=== PATIENT | female | born 1990 | race Caucasian/White ===

== ENCOUNTER → 2023-01-31 23:00 | Outpatient (CLI) | payer SELFPAY | PROVIDERS: Visit Provider Nurse Practitioner Obstetrics & Gynecology | DX: Z34.93 Encounter for supervision of normal pregnancy, unspecified, third trimester (principal); Z3A.37 37 weeks gestation of pregnancy | CPT/HCPCS: 86403 ==

== ENCOUNTER 2023-02-13 04:18 | Inpatient (IN) | payer SELFPAY ==
[2023-02-13 04:35] VITALS: BMI 28.3
[2023-02-13 05:10] VITALS: BP 133/76; PULSE 89; RESP 20; TEMP 36.8; O2SAT 100; BMI 28.1
[2023-02-13 06:09] LABS: Coronavirus 19, PCR Not Detected (NotDetected); Influenza A, PCR Not Detected (NotDetected); Influenza B, PCR Not Detected (NotDetected)
[2023-02-13 06:14] LABS: Basophils % 0.3 % (0.1-2.0); Eosinophils # 0.2 K/mm3 (0.0-0.4); Hemoglobin 12.4 g/dL (12.2-16.2); Lymphocytes # 1.5 K/mm3 (0.7-4.5); Mean Corpuscular HGB Conc 31.8 g/dL (31.8-35.4); Mean Corpuscular Hemoglobin 27.6 pg (27.0-31.2); Mean Corpuscular Volume 86.7 fl (81-99); Monocytes # 0.3 K/mm3 (0.1-1.0); Monocytes % 6.3 % (1.7-9.3); Neutrophils # 3.5 K/mm3 (1.8-7.8); Neutrophils % 63.4 % (37.0-80.0); Platelet Count 195 K/mm3 (142-424); Red Blood Count 4.49 M/mm3 (4.20-5.40); Red Cell Distribution Width 15.2 % (11.5-17.5); White Blood Count 5.4 K/mm3 (4.8-10.8)
--- NOTE | 2023-02-13 12:23 | EXP.LABOR.NO ---
Labor Note Subjective: Date: 02/13/23 Time: 09:15 regular contraction Objective: NST:: Reactive Contractions:: every 2-3 minutes Cervical Dilation:: 4 Effacement:: 50% Station: -2 Membranes: artificially ruptured Fetus: Monitoring?: Yes monitoring type:: External Assessment: Labor progressing?: Yes Cephalopelvic disproportion?: No Plan: Anesthesia for epidural?: No Continue to labor down?: Yes Plan for ?: No Continue to monitor?: Yes Start pushing?: No Comment:: I ruptured membranes and there was clear fluid. The nonstress test is reactive. She is danuta every 2 minutes. We expect a vaginal delivery at
--- NOTE | 2023-02-13 12:24 | EXP.DN ---
Delivery Note Delivery Date:: 02/13/23 Delivery Time:: 11:45 Anesthesia Type: None Was labor medically induced?: Yes Induction method: per pitocin protocol Gestational age (weeks): 39 Infant delivered prior to 39 weeks?: No Gender: Female at 1 minute: 9 at 5 minutes: 9 Delivery Procedure:: She is a 32-year-old 7 para 6 at 39+ weeks gestational age. She has had previous vaginal deliveries. She wanted to deliver in hospital so we elected to induce her labor at term. She was started on IV oxytocin had her membranes ruptured. Under labor epidural she progressed to full dilation and delivered spontaneously a liveborn female child at 11:45 AM on the morning of February 13, 2023. On delivery the head the anterior shoulder then easily delivered followed by the rest the infant's body atraumatically. The baby was vigorous so we allowed the cord to continue to pulsate for approximately 1 minute. The cord was then doubly clamped and cut and the infant was placed on the mother's abdomen for further care. The nurse assigned Apgars of 9 at 1 minute and 9 at 5 minutes. She received IV oxytocin using gentle traction on the cord and countertraction the fundus I was able to easily deliver the placenta intact. There were no perineal or vaginal lacerations. She has a positive blood and was group B streptococcus positive. She received IV antibiotics in labor. She plans to breast-feed. Her estimated blood loss was approximately 200 cc. Placental Delivery Description: Spontaneous
--- NOTE | 2023-02-13 12:27 | EXP.HP ---
History of Present Illness *Admission Date: 02/13/23 *Reason for visit:: Term , previous vaginal deliveries, requested hospital delivery. *History of present illness: She is a 32-year-old 7 para 6 [employer] lady who expressed a desire to deliver in hospital. She wanted to be induced at term as well. As result that she was brought in for induction of labor at 39+ weeks. [facility] Disclaimer: The information contained in this section may have been updated after the patient was seen, as this information can be updated by other users. Surgical History Hx of appendectomy Family History No significant family history Social History Smoking Status: Never smoker alcohol intake: never substance use type: denies use current occupational status: other Travel in the last 8 weeks: None Review of Systems Review of Systems Review of systems:: pertinent systems reviewed and negative unless documented below Meds Home Medications and Allergies Home Medications Medication Instructions Recorded Confirmed Type No Known Home Medications 02/13/23 02/13/23 History New Prescriptions to Start Prescriptions: Allergies Allergy/AdvReac Type Severity Reaction Status Date / Time No Known Allergies Allergy Verified 01/31/23 15:16 Exam Data for Last 24 hours Vital signs and Labs for Last 24 Hours: Temp Pulse Resp BP Pulse Ox 98.2 F 89 20 133/76 100 02/13/23 05:10 02/13/23 05:10 02/13/23 05:10 02/13/23 05:10 02/13/23 05:10 Laboratory Results - last 24 hr 02/13/23 04:45: WBC 5.4, RBC 4.49, Hgb 12.4, Hct 39.0, MCV 86.7, MCH 27.6, MCHC 31.8, RDW 15.2, Plt Count 195, MPV 9.0, Neut % (Auto) 63.4, Lymph % (Auto) 27.0, [place] % (Auto) 6.3, Eos % (Auto) 3.0, Baso % (Auto) 0.3, Neut # (Auto) 3.5, Lymph # (Auto) 1.5, [place] # (Auto) 0.3, Eos # (Auto) 0.2, Baso # (Auto) 0.0 02/13/23 04:45: SARS-CoV-2 (PCR) Not detected, Influenza A Untype (PCR) Not detected, Influenza Type B (PCR) Not detected 02/13/23 04:45: Blood Type A Positive, Antibody Screen Negative, Crossmatch (AHG) See Detail 02/13/23 09:02: Blood Type Confirm A Positive I & O for Last 24 hours: Intake & Output 02/11/23 02/12/23 02/13/23 02/14/23 11:59 11:59 11:59 11:59 Weight 164 lb 15.692 oz Constitutional Constitutional: no acute distress *Routine HEENT Exam Head: Present normocephalic Eye: Present EOMI and PERRL ENT: Present mucous membranes moist *Routine Neck Exam Neck: Present supple; Absent lymphadenopathy *Routine Respiratory Exam Respiratory: Present CTA bilaterally *Routine Cardiovascular Exam Cardiovascular: Present RRR *Routine Abdominal Exam Abdominal: Present soft and normoactive bowel sounds; Absent tenderness *Routine Rectal Exam Rectal:: deferred *Routine Genitalia Exam Genitalia:: deferred *Routine Extremities Exam Extremities: Absent cyanosis, clubbing or edema *Routine Skin Exam Skin: Present warm; Absent rash *Routine Neurological Exam Neurological: Present alert and oriented X3 Assessment and Plan *Assessment and plan (1) Normal delivery: Status: Acute Category: Medical Code(s): O80 - Encounter for full-term uncomplicated delivery (2) Grand multiparity with problem: Status: Acute Category: Medical Code(s): O09.40 - Supervision of with grand multiparity, unspecified trimester Plan We expect a vaginal delivery.
[2023-02-13 13:01] LABS: Microscopic, Urine URINE MICROSCOPIC (MICROSCOPIC)
[2023-02-13 13:05] LABS: Appearance,Urine CLEAR (Clear); Bilirubin,Urine Negative (Negative); Blood, Urine Negative (Negative); Color,Urine YELLOW (Yellow); Glucose,Urine (UA) Negative (Negative); Ketones,Urine Negative (Negative); Leukocyte Esterase,Urine TRACE (Negative); Nitrate,Urine Negative (Negative); Protein,Urine Negative (Negative); Urobilinogen,Urine 0.2 EU/dl (0.2)
[2023-02-13 14:02] LABS: Amphetamine/Metha Screen,Urine Negative ng/ml (<1000); Barbiturates Screen,Urine Negative ng/ml (<200)
[2023-02-13 14:03] LABS: Benzodiazepines Screen,Urine Negative ng/ml (<200)
[2023-02-13 14:04] LABS: Cannabinoid Screen,Urine Negative ng/ml (<50); Cocaine Screen,Urine Negative ng/ml (<300)
[2023-02-13 14:05] LABS: Methadone Screen,Urine Negative ng/ml (<300); Opiate Screen,Urine Negative ng/ml (<300)
[2023-02-13 14:09] LABS: Phencyclidine Screen,Urine Negative ng/ml (<25)
[2023-02-13 14:55] LABS: Bacteria,Urine Trace /lpf; Squamous Epithelial Cell,Urine Occasional #/hpf (0-5)
--- NOTE | 2023-02-13 17:00 | EXP.DC.SUM ---
General Admission date:: 02/13/23 Discharge date: 02/13/23 HPI HPI HPI: She is a 32-year-old 7 para 6 D[place] lady who expressed a desire to deliver in hospital. She wanted to be induced at term as well. As result that she was brought in for induction of labor at 39+ weeks. Hospital Course Hospital Course Hospital Course: She was started on IV oxytocin had her membranes ruptured. She progressed to full dilation and delivered spontaneously a liveborn female child at 11:42 AM on the morning of February 13, 2023. The baby weighed 9 pounds 4 ounces and had Apgars of 9 at 1 minute and 9 at 5 minutes. She has done well and has remained afebrile throughout her hospitalization. We did give her 1 dose of Methergine. We are also giving her oral Cytotec. I will have her take oral Cytotec when she goes home. She will take 200 mcg every 6 hours for the next 24 hours. She has a positive blood, she is rubella unknown and was group B streptococcus positive. She did receive IV antibiotics in labor. She is discharged home. She will continue with her vitamins and iron. She will take the Cytotec for 24 hours. Her condition on discharge is stable and improved. Exam Data for Last 24 hours Vital signs and Labs for Last 24 Hours: Temp Pulse Resp BP Pulse Ox 98.2 F 89 20 133/76 100 02/13/23 05:10 02/13/23 05:10 02/13/23 05:10 02/13/23 05:10 02/13/23 05:10 Laboratory Results - last 24 hr 02/13/23 04:45: WBC 5.4, RBC 4.49, Hgb 12.4, Hct 39.0, MCV 86.7, MCH 27.6, MCHC 31.8, RDW 15.2, Plt Count 195, MPV 9.0, Neut % (Auto) 63.4, Lymph % (Auto) 27.0, [place] % (Auto) 6.3, Eos % (Auto) 3.0, Baso % (Auto) 0.3, Neut # (Auto) 3.5, Lymph # (Auto) 1.5, [place] # (Auto) 0.3, Eos # (Auto) 0.2, Baso # (Auto) 0.0 02/13/23 04:45: SARS-CoV-2 (PCR) Not detected, Influenza A Untype (PCR) Not detected, Influenza Type B (PCR) Not detected 02/13/23 04:45: Blood Type A Positive, Antibody Screen Negative, Crossmatch (AHG) See Detail 02/13/23 08:15: Urine Color Yellow, Urine Appearance Clear, Urine pH 6.0, Ur Specific Tok 1.010, Urine Protein Negative, Urine Glucose (UA) Negative, Urine Ketones Negative, Urine Blood Negative, Urine Nitrate Negative, Urine Bilirubin Negative, Urine Urobilinogen 0.2, Ur Leukocyte Esterase Trace, Urine RBC None, Urine WBC 3-5, Ur Squamous Epith Cells Occasional, Urine Bacteria Trace 02/13/23 08:15: Urine Opiates Screen Negative, Urine Methadone Screen Negative, Ur Barbituates Screen Negative, Ur Phencyclidine Scrn Negative, Ur Amphetamines Screen Negative, U Benzodiazepines Scrn Negative, Urine Cocaine Screen Negative, U Marijuana (THC) Screen Negative 02/13/23 09:02: Blood Type Confirm A Positive I & O for Last 24 hours: Intake & Output 02/11/23 02/12/23 02/13/23 02/14/23 11:59 11:59 11:59 11:59 Weight 164 lb 15.692 oz Constitutional Constitutional: no acute distress *Routine HEENT Exam Head: Present normocephalic *Routine Neck Exam Neck: Present full ROM Results Data Completed and Pending Labs on day of discharge: Labs from last 24 hours 02/13/23 02/13/23 02/13/23 09:02 08:15 08:15 WBC RBC Hgb Hct MCV MCH MCHC RDW Plt Count MPV Neut % (Auto) Lymph % (Auto) [place] % (Auto) Eos % (Auto) Baso % (Auto) Neut # (Auto) Lymph # (Auto) [place] # (Auto) Eos # (Auto) Baso # (Auto) Urine Color Yellow Urine Appearance Clear Urine pH 6.0 Ur Specific Tok 1.010 Urine Protein Negative Urine Glucose (UA) Negative Urine Ketones Negative Urine Blood Negative Urine Nitrate Negative Urine Bilirubin Negative Urine Urobilinogen 0.2 Ur Leukocyte Esterase Trace Urine RBC None Urine WBC 3-5 Ur Squamous Epith Cells Occasional Urine Bacteria Trace Urine Opiates Screen Negative Urine Methadone Screen Negative Ur Barbituates Screen Negative Ur Phencyclidine Scrn Negativ
== END 2023-02-13 19:58 | disposition home or self-care (01) | DRG 807 ==
PROVIDERS: Admitting Provider Nurse Practitioner Obstetrics & Gynecology; PCP Nurse Practitioner Family; Visit Provider Nurse Practitioner Obstetrics & Gynecology
DX: O99.824 Streptococcus B carrier state complicating childbirth (principal); Z37.0 Single live birth; Z3A.39 39 weeks gestation of pregnancy
CPT/HCPCS: 59409; 36415; 59025; 80305; 81001; 85025; 86850; 87636; C9803; J0290; U0003; U0005